=== PATIENT | female | born 1950 | race Two or more races ===

== ENCOUNTER 2020-04-03 08:41 | Outpatient (CLI) | payer OTHER | END 2020-04-03 08:45 | disposition home or self-care (01) | LOC: RAD 08:41 | PROVIDERS: ATTEND Surgery Surgery of the Hand | DX: M86.141 Other acute osteomyelitis, right hand (principal) ==

== ENCOUNTER 2020-05-01 12:10 | Outpatient (CLI) | payer OTHER | END 2020-05-01 12:37 | disposition home or self-care (01) | LOC: RAD 12:10 | PROVIDERS: ATTEND Emergency Medicine | DX: L02.511 Cutaneous abscess of right hand (principal); L03.011 Cellulitis of right finger ==

== ENCOUNTER → 2020-05-06 | Outpatient (CLI) | payer OTHER | END | disposition home or self-care (01) | LOC: RAD 10:19 | PROVIDERS: ATTEND Physical Medicine & Rehabilitation Hospice and Palliative Medicine | DX: M17.11 Unilateral primary osteoarthritis, right knee (principal) ==

== ENCOUNTER 2020-09-22 08:04 | Outpatient (CLI) | payer OTHER | END 2020-09-22 08:13 | disposition home or self-care (01) | LOC: MRI 08:04 | PROVIDERS: ATTEND Physical Medicine & Rehabilitation Hospice and Palliative Medicine | DX: S83.241A Other tear of medial meniscus, current injury, right knee, initial encounter (principal); M17.11 Unilateral primary osteoarthritis, right knee; M25.561 Pain in right knee | CPT/HCPCS: 73721 ==

== ENCOUNTER 2020-09-29 10:43 | Outpatient (CLI) | payer OTHER | END 2020-09-29 10:53 | disposition home or self-care (01) | LOC: RAD 10:43 | PROVIDERS: ATTEND Internal Medicine Rheumatology | DX: M19.041 Primary osteoarthritis, right hand (principal); M79.644 Pain in right finger(s); M79.645 Pain in left finger(s) ==

== ENCOUNTER 2021-05-24 08:14 | Outpatient (CLI) | payer OTHER | END 2021-05-24 08:26 | disposition home or self-care (01) | LOC: MAMO-SONO 08:14 | PROVIDERS: ATTEND Obstetrics & Gynecology | DX: R92.1 Mammographic calcification found on diagnostic imaging of breast (principal); N64.59 Other signs and symptoms in breast; Z12.31 Encounter for screening mammogram for malignant neoplasm of breast ==

== ENCOUNTER 2021-06-28 11:28 | Outpatient (CLI) | payer OTHER | END 2021-06-28 13:48 | disposition home or self-care (01) | LOC: RAD 11:28 | PROVIDERS: ATTEND Orthopaedic Surgery | DX: R07.89 Other chest pain (principal); M17.0 Bilateral primary osteoarthritis of knee ==

== ENCOUNTER 2021-12-14 08:54 | Outpatient (CLI) | payer OTHER | END 2021-12-14 09:00 | disposition home or self-care (01) | LOC: MRI 08:54 | PROVIDERS: ATTEND Emergency Medicine | DX: M23.51 Chronic instability of knee, right knee (principal) | CPT/HCPCS: 73718 ==

== ENCOUNTER 2022-05-30 08:10 | Outpatient (CLI) | payer OTHER | END 2022-05-30 08:11 | disposition home or self-care (01) | LOC: NUCLEAR 08:10 | PROVIDERS: ATTEND Specialist | DX: M81.8 Other osteoporosis without current pathological fracture (principal) ==

== ENCOUNTER 2022-05-30 09:21 | Outpatient (CLI) | payer OTHER | END 2022-05-30 09:27 | disposition home or self-care (01) | LOC: MRI 09:21 | PROVIDERS: ATTEND Orthopaedic Surgery | DX: M51.9 Unspecified thoracic, thoracolumbar and lumbosacral intervertebral disc disorder (principal) | CPT/HCPCS: 72148 ==

== ENCOUNTER 2022-07-23 08:03 | Outpatient (CLI) | payer OTHER | END 2022-07-23 08:10 | disposition home or self-care (01) | LOC: RAD 08:03 | PROVIDERS: ATTEND Emergency Medicine | DX: R05.9 Cough, unspecified (principal) ==

== ENCOUNTER 2023-06-05 11:38 | Outpatient (CLI) | payer OTHER | END 2023-06-05 11:52 | disposition home or self-care (01) | LOC: MAMO-SONO 11:38 | PROVIDERS: ATTEND Obstetrics & Gynecology | DX: N63.0 Unspecified lump in unspecified breast (principal); N64.59 Other signs and symptoms in breast; N64.9 Disorder of breast, unspecified; Z12.31 Encounter for screening mammogram for malignant neoplasm of breast ==

== ENCOUNTER 2023-06-09 13:22 | Outpatient (CLI) | payer OTHER | END 2023-06-09 13:25 | disposition home or self-care (01) | LOC: NUCLEAR 13:22 | PROVIDERS: ATTEND Obstetrics & Gynecology | DX: Z13.820 Encounter for screening for osteoporosis (principal); N95.1 Menopausal and female climacteric states ==

== ENCOUNTER 2023-06-20 08:49 | Outpatient (CLI) | payer OTHER | END 2023-06-20 08:56 | disposition home or self-care (01) | LOC: SONOGRAMA 08:49 | PROVIDERS: ATTEND Obstetrics & Gynecology | DX: N20.0 Calculus of kidney (principal) ==

== ENCOUNTER 2023-09-13 08:59 | Outpatient (CLI) | payer OTHER | END 2023-09-13 09:07 | disposition home or self-care (01) | LOC: RAD 08:59 | PROVIDERS: ATTEND Physical Medicine & Rehabilitation Hospice and Palliative Medicine | DX: G56.21 Lesion of ulnar nerve, right upper limb (principal); M25.561 Pain in right knee; Z96.651 Presence of right artificial knee joint ==

== ENCOUNTER 2023-11-23 09:20 | Outpatient (CLI) | payer OTHER | END 2023-11-23 09:27 | disposition home or self-care (01) | LOC: TOM 09:20 | PROVIDERS: ATTEND Emergency Medicine | DX: G44.309 Post-traumatic headache, unspecified, not intractable (principal) ==

== ENCOUNTER 2024-06-07 09:09 | Outpatient (CLI) | payer OTHER | END 2024-06-07 09:12 | disposition home or self-care (01) | LOC: SONOGRAMA 09:09 | DX: R10.9 Unspecified abdominal pain (principal) ==

== ENCOUNTER 2024-06-11 08:52 | Outpatient (CLI) | payer OTHER | END 2024-06-11 09:05 | disposition home or self-care (01) | LOC: MAMO-SONO 08:52 | PROVIDERS: ATTEND Obstetrics & Gynecology | DX: N63.0 Unspecified lump in unspecified breast (principal); N64.59 Other signs and symptoms in breast; N64.9 Disorder of breast, unspecified; Z12.31 Encounter for screening mammogram for malignant neoplasm of breast ==

== ENCOUNTER 2025-06-13 09:49 | Outpatient (CLI) | payer OTHER | END 2025-06-13 09:53 | disposition home or self-care (01) | LOC: RAD 09:49 | PROVIDERS: ATTEND Internal Medicine | DX: M54.2 Cervicalgia (principal) ==

== ENCOUNTER 2025-08-25 07:10 | Outpatient (CLI) | payer OTHER | END 2025-08-25 07:11 | disposition home or self-care (01) | LOC: NUCLEAR 07:10 | PROVIDERS: ATTEND Internal Medicine Cardiovascular Disease | DX: R07.89 Other chest pain (principal) | CPT/HCPCS: 78452; 93017; A9500 ==

== ENCOUNTER 2025-08-25 10:19 | Outpatient (CLI) | payer OTHER | END 2025-08-25 10:22 | disposition home or self-care (01) | LOC: TOM 10:19 | PROVIDERS: ATTEND Internal Medicine Cardiovascular Disease | DX: G44.319 Acute post-traumatic headache, not intractable (principal) | CPT/HCPCS: 70470; Q9965 ==